=== PATIENT | male | born 1940 | race Caucasian/White ===

== ENCOUNTER 2022-11-05 09:29 | Emergency (ER) | payer MEDICARE, SELFPAY ==
--- NOTE | 2022-11-05 09:31 | ED.LOWEXIN ---
HPI - Extremity Injury (Lower) General Chief Complaint: Extremity Injury, Lower Stated Complaint: L TOE REDNESS/PAIN Time Seen by Provider: 11/05/22 09:31 Source: patient Mode of arrival: ambulatory Limitations: no limitations History of Present Illness HPI Narrative: Patient is an 81-year-old male who presents with left big toe redness and pain for week and a half. Patient states the pain is worsened since yesterday, 01/20. Patient has a history of gout but is not currently on any medication. Denies any injury to toe. Denies any fever, chills. Has been taking ibuprofen with little relief. Related Data Home Medications Medication Instructions Recorded Confirmed aspirin 81 mg tablet,delayed 81 mg PO DAILY 11/14/19 11/05/22 release metoprolol succinate 50 mg 50 mg PO DAILY 11/14/19 11/05/22 tablet,extended release 24 hr lactobacillus combination no.8 3 1 cell DAILY 11/05/22 11/05/22 billion cell capsule tumeric 100 mg-siva 150 mg-olive 1 cap PO DAILY 11/05/22 11/05/22 50 mg-oreg 150 mg-caprylate capsule Allergies Allergy/AdvReac Type Severity Reaction Status Date / Time propoxyphene Allergy Intermediate HEART Verified 11/05/22 09:40 PALPITATIONS Review of Systems Review of Systems: All systems reviewed & are unremarkable except as noted in HPI and below Constitutional: Constitutional: Denies body ache(s), Denies chills, Denies fatigue, Denies fever(s), Denies headache(s), Denies malaise and Denies weakness Eyes: Eyes: Denies blurry vision, Denies irritation and Denies loss of vision ENT: Denies otalgia, Denies headache(s), Denies nasal discharge, Denies sinus pain and Denies sore throat Cardiovascular: Cardiovascular: Denies chest pain, Denies irregular heart rhythm and Denies dyspnea Respiratory: Respiratory: Denies dyspnea Gastrointestinal: Gastrointestinal: Denies abdominal pain, Denies melena, Denies hematochezia, Denies diarrhea, Denies nausea and Denies vomiting Musculoskeletal: Musculoskeletal: Denies back pain, Denies myalgias, Reports arthralgias and Reports joint swelling Integumentary/Breasts: Skin/Breast: Denies pruritus and Denies rash Neurologic: Denies headache(s), Denies loss of vision and Denies weakness Psychiatric: Psychiatric: Reports no additional psychiatric complaints Endocrine: Endocrine: Denies fatigue PMFSH Past Medical History Medical History CAD (coronary artery disease) HLD (hyperlipidemia) Screening PSA (prostate specific antigen) Family History Family History Father Family history of cardiovascular disease, Onset Age: 68 Mother Acute myocardial infarction, Onset Age: 86 Social History Social History Smoking status: Former smoker Alcohol intake: current Comments At time of signature, agree with nursing past medical, surgical, social and family history. There is no relevant family history pertinent to the presenting complaint. Exam Const: General: cooperative, healthy appearing, comfortable, no acute distress and well nourished Nutritional Appearance: well nourished Orientation/consciousness: patient oriented x3 Limitations: no limitations HENMT: Head: normal to inspection, normocephalic and atraumatic Ears: hearing grossly normal bilaterally and external ears normal Face/Nose/Sinus: Normal external nose present, normal facial exam and face symmetric Face and sinus: normal facial exam and face symmetric Mouth: Yes lip normal Eyes: General: appearance normal, both eyes and all related structures Alignment and Position: alignment normal and position normal Periorbital: periorbital findings normal Eyelids: eyelids normal Pupils: Equal, round and reactive pupils present EOM: EOMs intact bilaterally Neck: Neck: normal visual inspection, full ROM and s
[2022-11-05 09:41] VITALS: BP 163/97; PULSE 77; RESP 16; TEMP 36.6; O2SAT 96
== END 2022-11-05 10:18 | disposition home or self-care (01) ==
PROVIDERS: Emergency Provider Nurse Practitioner Family; PCP Internal Medicine
DX: M10.9 Gout, unspecified (principal); I25.10 Atherosclerotic heart disease of native coronary artery without angina pectoris; E78.5 Hyperlipidemia, unspecified; Z87.891 Personal history of nicotine dependence; Z79.82 Long term (current) use of aspirin
CPT/HCPCS: 99213; G0463

== ENCOUNTER 2022-11-07 16:59 | Emergency (ER) | payer MEDICARE, SELFPAY ==
[2022-11-07 17:02] VITALS: BP 170/69; PULSE 69; RESP 20; TEMP 36.5; O2SAT 96
--- NOTE | 2022-11-07 17:23 | ED.EXTPRO ---
HPI - Extremity Problem General Chief complaint: Extremity Problem,Nontraumatic Stated complaint: gout left toe Time Seen by Provider: 11/07/22 17:05 History of Present Illness HPI Narrative: Patient is an 81-year-old male here for evaluation of erythema and pain and swelling to his left great toe x3 days. Patient presented to an urgent care upon symptom onset, was diagnosed with gout, was given prednisone and colchicine. Patient completed his course of colchicine today and after completion he states the redness and swelling came back. He has 5 more days of prednisone to take. He has not taken any Tylenol and ibuprofen. He denies any fevers, chills, nausea or vomiting. He states that he has been eating hamburger every day and drinking 2 beers nightly. He has also been walking more frequently and doing yard work. Related Data Home Medications Medication Instructions Recorded Confirmed aspirin 81 mg tablet,delayed 81 mg PO DAILY 11/14/19 11/05/22 release metoprolol succinate 50 mg 50 mg PO DAILY 11/14/19 11/05/22 tablet,extended release 24 hr lactobacillus combination no.8 3 1 cell DAILY 11/05/22 11/05/22 billion cell capsule tumeric 100 mg-siva 150 mg-olive 1 cap PO DAILY 11/05/22 11/05/22 50 mg-oreg 150 mg-caprylate capsule Allergies Allergy/AdvReac Type Severity Reaction Status Date / Time propoxyphene Allergy Intermediate HEART Verified 11/05/22 09:40 PALPITATIONS Review of Systems Review of Systems: Gen.: Denies fevers or chills Eyes: Denies eye pain or visual change ENT: Denies congestion Respiratory: Denies shortness of breath or cough CV: Denies chest pain or palpitations GI: Denies abdominal pain nausea, emesis or diarrhea denies burning, urgency, frequency or hematuria Musculoskeletal: Reports left toe pain Neuro: Denies numbness, tingling, weakness or focal weakness Skin: Denies rash Except as documented, all other systems reviewed and negative [facility] Past Medical History Medical History CAD (coronary artery disease) HLD (hyperlipidemia) Screening PSA (prostate specific antigen) Family History Family History Father Family history of cardiovascular disease, Onset Age: 68 Mother Acute myocardial infarction, Onset Age: 86 Social History Social History Smoking status: Former smoker Alcohol intake: current Exam Narrative: APPEARANCE: Well appearing, no pain in distress, well-nourished. Head: Normocephalic and atraumatic. EYES: PERRLA/EOMI, conjunctivae clear NOSE: No nasal drainage EARS: External ear normal in appearance THROAT: Oropharynx is clear. Mucous membranes are moist. NECK: Supple. No adenopathy, no masses. RESPIRATORY: Airway patent, respirations nonlabored. Clear to auscultation bilaterally, no rales, rhonchi, wheezing. CARDIOVASCULAR: Regular rate and rhythm without murmurs, rubs, or gallops. ABDOMINAL: Normoactive bowel sounds. Soft, nontender, nondistended. No rebound tenderness or guarding. MUSCULOSKELETAL: There is redness and swelling to the left great toe. Full range of motion without pain. Extremities are warm and well-perfused. Moves all extremities well. No edema. NEURO: Normal speech. No focal neurologic deficits. SKIN: Skin is warm and dry. No rashes. PSYCHIATRIC: Normal affect/mood. Course Vital Signs Vital signs: Vital Signs Temperature 97.7 F 11/07/22 17:02 Pulse Rate 69 11/07/22 17:02 Respiratory Rate 20 11/07/22 17:02 Blood Pressure 170/69 H 11/07/22 17:02 Pulse Oximetry 96 11/07/22 17:02 Oxygen Delivery Room Air 11/07/22 17:02 Temperature 97.7 F 11/07/22 17:02 Pulse Rate 69 11/07/22 17:02 Respiratory Rate 20 11/07/22 17:02 Blood Pressure 170/69 H 11/07/22 17:02 Pulse Oximetry 96 11/07/22 1
== END 2022-11-07 18:21 | disposition home or self-care (01) ==
LOC: ANHED 17:37
PROVIDERS: Emergency Provider Physician Assistant; PCP Internal Medicine
DX: M10.9 Gout, unspecified (principal); I25.10 Atherosclerotic heart disease of native coronary artery without angina pectoris; E78.5 Hyperlipidemia, unspecified; Z79.82 Long term (current) use of aspirin; Z87.891 Personal history of nicotine dependence
CPT/HCPCS: 99283

== ENCOUNTER 2023-12-12 08:40 | Emergency (ER) | payer MEDICARE, SELFPAY ==
[2023-12-12 08:53] VITALS: BP 158/78; PULSE 86; RESP 16; TEMP 36.5; O2SAT 98
--- NOTE | 2023-12-12 09:00 | ED.SKABFB ---
HPI - Skin/Abscess/Foreign Bdy General Chief complaint: Skin/Abscess/Foreign Body Stated complaint: INSECT BITE Time Seen by Provider: 12/12/23 09:00 Source: patient, family, RN notes reviewed and old records reviewed Mode of arrival: ambulatory Limitations: no limitations History of Present Illness HPI narrative: 83 year old male accompanied by presents to express care with complaints of noting either spider/insect bite to his right upper chest area which he noted last night. Patient has red area to right upper chest with center pin point black scabbed lesion with total area of redness 6cm X 4.5cm. Patient reports no acute pain to area on chest reports some tenderness of skin on palpation, no induration or fluctuant tissue noted of area. Patient reports no known fevers. MD complaint: insect bite/sting Onset (ago): day(s) (day 2 of symptoms) Location: chest (right chest) Severity: mild Quality: other (tenderness with palpation) Treatments prior to arrival: none Related Data Home Medications Medication Instructions Recorded Confirmed aspirin 81 mg tablet,delayed 81 mg PO DAILY 11/14/19 12/12/23 release metoprolol succinate 50 mg 50 mg PO DAILY 11/14/19 12/12/23 tablet,extended release 24 hr lactobacillus combination no.8 3 1 cell DAILY 11/05/22 12/12/23 billion cell capsule turmeric 100 mg-siva 150 1 cap PO DAILY 11/05/22 12/12/23 mg-olive 50 mg-oreg 150 mg-capryl capsule allopurinol 100 mg tablet 100 mg PO DAILY 12/12/23 12/12/23 Allergies Allergy/AdvReac Type Severity Reaction Status Date / Time propoxyphene Allergy Intermediate HEART Verified 12/12/23 08:49 PALPITATIONS Review of Systems Review of Systems: CONSTITUTIONAL: Denies fever, chills, or sweats. CARDIOVASCULAR: Denies chest pain, palpitations, or edema. RESPIRATORY: Denies cough or dyspnea. GASTROINTESTINAL: Denies abdominal pain, nausea, vomiting SKIN: Reports redness and minimal swelled area to right upper chest with center pin point scab with surrounding erythema, concern of insect bite MUSCULOSKELETAL: Denies myalgia. NEUROLOGIC: Denies headache, numbness All systems reviewed & are unremarkable except as noted in HPI and below PMFSH Past Medical History Medical History CAD (coronary artery disease) Gout HLD (hyperlipidemia) Hypertension Screening PSA (prostate specific antigen) Surgical History Surgical History H/O cataract removal with insertion of prosthetic lens bilateral History of appendectomy History of open heart surgery 5 vessel bypass History of total left knee replacement S/p bilateral carpal tunnel release S/P right rotator cuff repair S/P TURP Family History Family History Father Family history of cardiovascular disease, Onset Age: 68 Mother Acute myocardial infarction, Onset Age: 86 Social History Social History Smoking status: Former smoker Alcohol intake: current Substance use type: does not use Living arrangements: with family Gender identity (if verbalized by the patient): Male Comments At time of signature, agree with nursing past medical, surgical, social and family history. There is no relevant family history pertinent to the presenting complaint Exam Narrative: GENERAL: Well-appearing, well-nourished, and in no acute distress. HEAD: Normocephalic, atraumatic. EYES: PERRLA and EOMI. ENT: Nares clear, no rhinorrhea or epistaxis. Mucous membranes moist. NECK: Supple.no lymphadenopathy CHEST: Clear to auscultation. No respiratory distress.SAO2 98% on vasile air HEART: Regular rate and rhythm. No murmur heard. Normal peripheral pulses. ABDOMEN: Soft, nontender, nondistended, normal active bowel sounds. EXTREMITIES: Normal range of
== END 2023-12-12 09:27 | disposition home or self-care (01) ==
PROVIDERS: Emergency Provider Registered Nurse; PCP Internal Medicine
DX: S20.361A Insect bite (nonvenomous) of right front wall of thorax, initial encounter (principal); L03.313 Cellulitis of chest wall; W57.XXXA Bitten or stung by nonvenomous insect and other nonvenomous arthropods, initial encounter; Z87.891 Personal history of nicotine dependence; I25.10 Atherosclerotic heart disease of native coronary artery without angina pectoris; M10.9 Gout, unspecified; E78.5 Hyperlipidemia, unspecified; I10 Essential (primary) hypertension; Z96.1 Presence of intraocular lens; Z98.42 Cataract extraction status, left eye; Z98.41 Cataract extraction status, right eye; Z95.1 Presence of aortocoronary bypass graft; Z79.82 Long term (current) use of aspirin
CPT/HCPCS: 99213; G0463

== ENCOUNTER 2024-01-29 09:22 | Emergency (ER) | payer MEDICARE, SELFPAY ==
[2024-01-29] VITALS (10 sets, daily range): BP systolic 113–179; BP diastolic 63–90; PULSE 72–99; RESP 16–26; TEMP 36.6; O2SAT 91–97
--- NOTE | ~2024-01-29 | CT_ITS ---
EXAMINATION: CTA chest PE protocol DATE: 01/29/2024 11:04 INDICATION: Chest pain TECHNIQUE: Computed tomography (CT) pulmonary angiogram of the chest was performed with 100 mL Omnipa que-350 intravenous contrast. Additional 3D reconstructions utilizing coronal maximum intensity proje ction (MIP) were performed. Automated exposure control and iterative reconstruction technique were em ployed. The dose-length product was 822.49 mGy-cm. COMPARISON: None FINDINGS: No pulmonary embolism. There is diffuse bilateral groundglass opacities throughout both lungs which a ppears to 2 expiratory phase of imaging with concave contour to the posterior wall of the trachea as well as flattening of the right mainstem bronchus and bronchus intermedius which is also consistent w ith tracheobronchomalaciacould not exclude pulmonary edema although there is no smooth septal line th ickening to more specifically suggest this. There are couple small pneumatoceles of the right upper a nd right lower lobes. There are small bilateral pleural effusions along the posterior medial right lo wer lobe and loculated along the lateral side of the left mid to lower lung. Cardiomegaly. Atheroscle rotic coronary artery calcifications and change of median sternotomy and coronary artery bypass graft ing. Aortic valve calcification. Thoracic aorta is normal in caliber with no dissection. Mild right h ilar and mediastinal lymphadenopathy with largest lymph node in the right paratracheal region measuri ng 1.3 cm in maximal short axis diameter. A few cysts in the left hepatic lobe measuring up to 2.8 cm . There are also bilateral renal cysts the largest on the right measuring 2.5 cm. Visualized upper ab domen is otherwise unremarkable. Severe spondylosis at several levels of the cervicothoracic and thor acolumbar junctions. Chronic mild compression fractures at T7-T9. More recent physical chronic appear ing T12 compression fracture with 30% anterior vertebral body height loss. IMPRESSION: 1. No pulmonary embolism. 2. Groundglass opacities throughout both lungs and favor atelectasis due to expiratory phase of imagi ng over pneumonia. 3. Tracheobronchial malacia. 4. And small loculated left and very small right pleural effusions. 5. Cardiomegaly. 6. Mild likely reactive right hilar and mediastinal lymphadenopathy. Reviewed, dictated and finalized at location A. IMPRESSION: 1. No pulmonary embolism. 2. Groundglass opacities throughout both lungs and favor atelectasis due to exp iratory phase of imaging over pneumonia. 3. Tracheobronchial malacia. 4. And small loculated left and very small right pleural effusions. 5. Cardiomegaly. 6. Mild likely reactive right hilar and mediastinal lymphadenopathy.
--- NOTE | ~2024-01-29 | XR_ITS ---
EXAMINATION: XR chest 2V DATE: 01/29/2024 10:06 INDICATION: Chest pain and palpitations. TECHNIQUE: frontal and lateral views of the chest were obtained. COMPARISON: Chest radiograph dated 09/22/18 FINDINGS: Opacities in the left lower lung zone with blunting of the left costophrenic angle consistent with sm all left pleural effusion and associated atelectasis versus pneumonia. Right lung remains clear. No p ulmonary edema, pneumothorax or right-sided pleural effusion. Heart size is normal. Median sternotomy wires and mediastinal surgical clips are seen, likely from prior coronary artery bypass grafting. IMPRESSION: 1. Small left pleural effusion with associated basilar atelectasis and/or pneumonia. Reviewed, dictated and finalized at location A. IMPRESSION: 1. Small left pleural effusion with associated basilar atelectasis and/or pneum onia.
--- NOTE | 2024-01-29 09:23 | ECG_ITS ---
Test Date: 2024-01-29 09:28:40 Measurements Intervals [place] Rate: 93 P: 0 [place]: 0 QRS: 20 QRSD: 163 T: 155 QT: 356 QTc: 444 Interpretive Statements ATRIAL FIBRILLATION WITH ABERRANT CONDUCTION OR VENTRICULAR PREMATURE COMPLEXES INTRAVENTRICULAR CONDUCTION DELAY [130+ ms QRS DURATION] INFERIOR MYOCARDIAL INFARCTION , PROBABLY OLD [40+ ms Q WAVE AND/OR ST/T ABNORMALITY IN II/aVF] abnormal ecg Electronically Signed On 01-30-2024 10:48:01 CDT by Valdez Beltran M.D.
[2024-01-29 09:39] LABS: Basophils Absolute Auto 0.1 K/mm3 (0.0-0.1); Basophils Percent Auto 0.5 % (0.2-1.2); Eosinophils Absolute Auto 0.1 K/mm3 (0-0.3); Hematocrit 41.3 % (42.0-52.0); Hemoglobin 13.6 g/dL (14.0-18.0); Immature Granulocyte Absolute 0.05 K/mm3 (0.00-0.031); Immature Granulocyte Percent A 0.4 % (0-0.5); Lymphocytes Absolute Auto 1.11 K/mm3 (0.9-3.2); Lymphocytes Percent Auto 8.1 % (18.3-44.2); Mean Corpuscular HGB Conc 32.9 g/dl (32-36); Mean Corpuscular Hemoglobin 30.8 pg (26-34); Mean Corpuscular Volume 93.7 fl (80-100); Monocytes Absolute Auto 0.9 K/mm3 (0.1-0.6); Monocytes Percent Auto 6.9 % (2.6-8.5); Neutrophils Absolute Auto 11.3 K/mm3 (1.3-6.7); Neutrophils Percent Auto 83.1 % (45.5-73.1); Platelet Count Result 224 k/mm3 (150-375); Red Blood Count 4.41 M/mm3 (4.6-6.20); Red Cell Distribution Width 13.8 % (11.5-14.5); White Blood Count 13.6 K/mm3 (4.5-10.0)
--- NOTE | 2024-01-29 09:41 | ED.CHESTPAIN ---
HPI - Chest Pain General Chief Complaint: Chest Pain Stated Complaint: chest palp since 0430 Time Seen by Provider: 01/29/24 09:24 History of Present Illness HPI narrative: 83-year-old male present to the emergency department for evaluation of some chest tightness. Patient states that he woke up this morning he did have some chest tightness. Patient states this did not feel similar to his previous HI that occurred in 2018. Patient does have history of open heart surgery. Patient also states approximate 2 weeks ago he was diagnosed with AFib. Patient is not in RVR. Upon arrival emergency department patient states he is no longer having chest pain but does have some sharp pain when he takes a deep breath. Patient denies any recent cough colds or fevers. Patient denies any falls or injuries. Related Data Home Medications Medication Instructions Recorded Confirmed aspirin 81 mg tablet,delayed 81 mg PO DAILY 11/14/19 12/12/23 release metoprolol succinate 50 mg 50 mg PO DAILY 11/14/19 12/12/23 tablet,extended release 24 hr lactobacillus combination no.8 3 1 cell DAILY 11/05/22 12/12/23 billion cell capsule turmeric 100 mg-siva 150 1 cap PO DAILY 11/05/22 12/12/23 mg-olive 50 mg-oreg 150 mg-capryl capsule allopurinol 100 mg tablet 100 mg PO DAILY 12/12/23 12/12/23 Allergies Allergy/AdvReac Type Severity Reaction Status Date / Time propoxyphene Allergy Intermediate HEART Verified 01/29/24 09:34 PALPITATIONS Review of Systems Review of Systems: All systems reviewed & are unremarkable except as noted in HPI and below PMFSH Past Medical History Medical History CAD (coronary artery disease) Gout HLD (hyperlipidemia) Hypertension Screening PSA (prostate specific antigen) Surgical History Surgical History H/O cataract removal with insertion of prosthetic lens bilateral History of appendectomy History of open heart surgery 5 vessel bypass History of total left knee replacement S/p bilateral carpal tunnel release S/P right rotator cuff repair S/P TURP Family History Family History Father Family history of cardiovascular disease, Onset Age: 68 Mother Acute myocardial infarction, Onset Age: 86 Social History Social History Smoking status: Former smoker Alcohol intake: current Substance use type: does not use Living arrangements: with family Gender identity (if verbalized by the patient): Male Exam Narrative: APPEARANCE: Well appearing, no pain, no distress, well-nourished. HEAD: normocephalic, atraumatic. EYES: PERRLA/EOMI, conjunctivae clear. NOSE: Normal no drainage EARS:TMS clear with good light reflex. THROAT: Pharynx clear, no exudate. NECK: Supple. No adenopathy, no masses. RESPIRATORY: Airway patent, respirations nonlabored. Clear to auscultation bilaterally, no rales, rhonchi, wheezing. CARDIOVASCULAR: Regular rate and rhythm without murmurs rubs or gallops. ABDOMINAL: Soft, nontender, nondistended, normal bowel sounds MUSCULOSKELETAL: Moves all extremities. Strength/ROM intact, No edema, No calf tenderness. NEURO: Alert. Cranial nerves II through XII intact. Grossly intact SKIN: Warm, dry. Normal Color Course Course Emergency Course: Patient preferred to be discharged to home. Vital Signs Vital signs: Vital Signs Temperature 97.8 F 01/29/24 09:25 Pulse Rate 94 01/29/24 09:25 Respiratory Rate 25 H 01/29/24 09:25 Blood Pressure 179/90 H 01/29/24 09:25 Pulse Oximetry 97 01/29/24 09:25 Oxygen Delivery Room Air 01/29/24 09:25 Temperature 97.8 F 01/29/24 09:25 Pulse Rate 82 01/29/24 13:50 Respiratory Rate 21 H 01/29/24 13:50 Blood Pressure 140/87 01/29/24 13:32 Pulse Oximetry
[2024-01-29] MEDS: ASPIRIN 81 MG CHEWABLE TABLET 243 MG PO (09:43)
[2024-01-29] MEDS: NITROGLYCERIN SL 0.4 MG TABLET SUBLINGUAL (09:43)
[2024-01-29 09:57] LABS: INR 1.3; Prothrombin Time 16.8 Seconds (11.1-14.7)
[2024-01-29 09:58] LABS: Partial Thromboplastin Time 38.5 Seconds (22.3-36.8)
[2024-01-29 09:59] LABS: Alanine Aminotransferase 11 U/L (6-50); Albumin Level 4.1 g/dL (3.5-5.1); Alkaline Phosphatase 80 U/L (38-126); Anion Gap 8 mmol/L (4-12); Aspartate Amino Transferase 18 U/L (17-59); Bilirubin,Total 1.4 mg/dL (0.2-1.3); Blood Urea Nitrogen 16 mg/dL (9-20); Carbon Dioxide 24 mmol/L (22-30); Chloride 104 mmol/L (98-107); Estimated CRCL calculation 57 ml/min; Estimated Glomerular Filt Rate > 60; Glucose 160 mg/dL (65-110); Lipase 62 U/L (23-300); Potassium 4.1 mmol/L (3.4-5.0); Sodium 136 mmol/L (137-145)
[2024-01-29 10:10] LABS: Troponin I 0.017 ng/mL (0.000-0.034)
[2024-01-29 10:17] LABS: D Dimer 1.31 ug/mL (<0.48)
--- NOTE | 2024-01-29 12:55 | ECG_ITS ---
Test Date: 2024-01-29 13:00:48 Measurements Intervals [place] Rate: 71 P: 0 [place]: 0 QRS: -10 QRSD: 153 T: 147 QT: 401 QTc: 437 Interpretive Statements ATRIAL FIBRILLATION INTRAVENTRICULAR CONDUCTION DELAY [130+ ms QRS DURATION] INFERIOR MYOCARDIAL INFARCTION , PROBABLY OLD [40+ ms Q WAVE AND/OR ST/T ABNORMALITY IN II/aVF] ABNORMAL ECG Electronically Signed On 01-30-2024 10:52:41 CDT by Valdez Beltran M.D.
[2024-01-29 13:30] LABS: Troponin I 0.015 ng/mL (0.000-0.034)
== END 2024-01-29 14:03 | disposition home or self-care (01) ==
PROVIDERS: Emergency Provider Emergency Medicine; PCP Internal Medicine
DX: R07.89 Other chest pain (principal); I25.2 Old myocardial infarction; I48.91 Unspecified atrial fibrillation; I25.10 Atherosclerotic heart disease of native coronary artery without angina pectoris; I10 Essential (primary) hypertension; E78.5 Hyperlipidemia, unspecified; M10.9 Gout, unspecified; Z96.1 Presence of intraocular lens; Z98.42 Cataract extraction status, left eye; Z98.41 Cataract extraction status, right eye; Z95.1 Presence of aortocoronary bypass graft; Z96.652 Presence of left artificial knee joint; Z87.891 Personal history of nicotine dependence; Z79.01 Long term (current) use of anticoagulants; Z79.82 Long term (current) use of aspirin; Z79.899 Other long term (current) drug therapy; I51.7 Cardiomegaly; I45.9 Conduction disorder, unspecified
CPT/HCPCS: 36415; 71046; 71275; 80053; 83690; 84484; 85025; 85380; 85610; 85730; 93005; 99284; A9270; Q9967

== ENCOUNTER 2024-10-23 15:29 | Emergency (ER) | payer MEDICARE, SELFPAY ==
--- NOTE | ~2024-10-23 | XR_ITS ---
EXAMINATION: XR chest 2V Exam Date/Time: 10/23/2024 16:08 CDT HISTORY: cough, chills, sweats for 2 days Comparison: 01/29/2024; [facility]PA 01/29/2024. RESULT: Lines, tubes, and devices: Multiple fractured sternotomy wires remain in stable position. Mediastina l surgical clips. Lungs and pleura: Segmental left basilar and subsegmental right basilar airspace disease. Mild diffu se reticular opacities. Mild left costophrenic angle blunting. Cardiomediastinal silhouette: Stable. Other: No acute osseous or upper abdominal finding. IMPRESSION: Segmental left basilar and subsegmental right basilar airspace disease, may represent alveolar edema, atelectasis, or consolidation. Possible small loculated left pleural effusion. Senescent change vers us mild interstitial edema. Reviewed, dictated and finalized at location K. IMPRESSION: Segmental left basilar and subsegmental right basilar airspace disease, may rep resent alveolar edema, atelectasis, or consolidation. Possible small loculated left pleural effusion. Senescent change versus mild interstitial edema.
[2024-10-23 15:41] VITALS: BP 118/73; PULSE 72; RESP 18; TEMP 36.6; O2SAT 97
[2024-10-23 16:14] LABS: EDCOVIDSCREEN Negative (Negative); EDINFLUASCREEN Negative (Negative); EDINFLUBSCREEN Negative (Negative)
--- NOTE | 2024-10-23 16:27 | ED_ITS ---
HPI - URI/Sore Throat General Chief Complaint: Upper Respiratory Infection Stated Complaint: Cough Time Seen by Provider: 10/23/24 16:15 Source: patient and RN notes reviewed Mode of arrival: ambulatory Limitations: no limitations History of Present Illness HPI Narrative: 83-year-old male presents Express Care complaining of cough, chills, fevers, malaise, sweats since yesterday. Patient reports having a productive cough and having yellow and green sputum production. Patient has significant heart history including CABG. Patient denies any lung disease and quit smoking approximately 40 years ago. Patient denies any chest pain or shortness of breath, sore throat, rhinorrhea, ear pain, nausea, vomiting, diarrhea. Patient not get his pneumonia shot this year. Related Data Home Medications ?Medication ?Instructions ?Recorded ?Confirmed ?Last Taken ?Type aspirin 81 mg tablet,delayed 81 mg PO DAILY 11/14/19 12/12/23 Unknown History release metoprolol succinate 50 mg 50 mg PO DAILY 11/14/19 12/12/23 Unknown History tablet,extended release 24 hr lactobacillus combination no.8 3 1 cell DAILY 11/05/22 12/12/23 Unknown History billion cell capsule turmeric 100 mg-siva 150 1 cap PO DAILY 11/05/22 12/12/23 Unknown History mg-olive 50 mg-oreg 150 mg-capryl capsule allopurinol 100 mg tablet 100 mg PO DAILY 12/12/23 12/12/23 Unknown History apixaban 5 mg tablet (Eliquis) mg 10/23/24 Unknown History hydroxyzine HCl 50 mg tablet mg 10/23/24 Unknown History metoprolol succinate 25 mg mg PO 10/23/24 Unknown History tablet,extended release 24 hr Allergies Allergy/AdvReac Type Severity Reaction Status Date / Time propoxyphene Allergy Intermediate HEART Verified 10/23/24 15:37 PALPITATIONS Review of Systems Review of Systems: CONSTITUTIONAL: Positive for fever, chills, malaise, or sweats. Negative for body aches EYES: Denies visual changes, redness, or discharge. ENT: Denies rhinorrhea, sore throat, or otalgia. Positive for congestion. CARDIOVASCULAR: Denies chest pain, palpitations, or edema. RESPIRATORY: Positive for productive cough. Negative for dyspnea. GASTROINTESTINAL: Denies abdominal pain, nausea, vomiting, or diarrhea. GENITOURINARY: Denies dysuria or hematuria. SKIN: Denies rash or itching. MUSCULOSKELETAL: Denies back pain, joint pain, or myalgia. NEUROLOGIC: Denies headache, numbness, or weakness. PSYCHIATRIC: Denies anxiety or depression. All other systems reviewed are negative, except as documented in HPI. FOR[facility], LATER [facility] Past Medical History Medical History Hypertension Gout Screening PSA (prostate specific antigen) HLD (hyperlipidemia) CAD (coronary artery disease) Surgical History Surgical History H/O cataract removal with insertion of prosthetic lens bilateral S/p bilateral carpal tunnel release S/P right rotator cuff repair History of appendectomy S/P TURP History of total left knee replacement History of open heart surgery 5 vessel bypass Family History Family History Father Family history of cardiovascular disease, Onset Age: 68 Mother Acute myocardial infarction, Onset Age: 86 Social History Social History Smoking status: Former smoker Alcohol intake: current Substance use type: does not use Living arrangements: with family Gender identity (if verbalized by the patient): Male Comments At the time of my signature, I reviewed and agree with the nursing past medical, surgical, social, and family history. There is no relevant family history pertinent to the patient complaint. Exam Narrative: GENERAL: This is a well-nourished, well-developed adult, in no apparent distress. They are non ill-appearing, nontoxic appearing. Hearing aids are present. HEAD: normocephalic, atraumatic. EYES: Sclera clear/white. Conjunctiva normal. Vision is grossly intact. Extraocular movements intact EARS: External ears normal, auditory canals clear and without drainage, TMs normal without perforation. Hearing grossly intact. NOSE: External nose normal with no obvious nasal discharge, nasal turbinates erythematous bilaterally, no rhinorrhea. THROAT: Mucous membranes moist, posterior pharynx clear, without erythema or sw elling. Uvula midline. Postnasal drip present. NECK: Neck supple, non-tender without lymphadenopathy, masses or thyromegaly. CARDIOVASCULAR: Regular rate and rhythm without murmurs, gallops, or rubs. RESPIRATORY: Clear to auscultation. Breath sounds equal bilaterally. No wheezes, rales, or rhonchi. Respiratory rate normal, respiratory effort nonlabored, no respiratory distress, no retractions SKIN: warm, Dry, intact with no suspicious lesions or rash, good texture and turgor. NEURO: awake, alert, and oriented to person, place and time. There were no obvious focal neurologic abnormalities. EXTREMITIES: No joint tenderness, effusion, or edema noted. BACK: Nontender without deformity. No CVA tenderness. Course Course Emergency Course: Portions of this record may have been created with voice recognition software Level of Care: Express Care Visit Vital Signs Vital signs: Vital Signs Oxygen Delivery Room Air 10/23/24 15:39 Temperature 97.9 F 10/23/24 15:41 Pulse Rate 72 10/23/24 15:41 Respiratory Rate 18 10/23/24 15:41 Blood Pressure 118/73 10/23/24 15:41 Pulse Oximetry 97 10/23/24 15:41 Oxygen Delivery Room Air 10/23/24 15:39 Reviewed MDM - URI/Sore Throat MDM Narrative Medical decision making narrative: Rapid COVID and flu negative. Chest x-ray revealed evidence of pneumonia and a possible small pleural effusion. No adventitious lung sounds present on exam. Given patient's symptoms is likely the patient has a bacterial pneumonia. Will treat empirically with Augmentin and azithromycin given his comorbidities. Patient is not short of breath at rest or with exertion. Patient vital signs are stable without evidence of hypoxia. Patient is appropriate for outpatient management and follow-up. Discussed physical exam findings. Anticipatory guidance given. Strict ER precautions discussed. Differential Diagnosis Differential diagnosis: Likely upper respiratory infection, bronchitis and other (Pneumonia) Lab Data Attestation: I reviewed the patient's lab results. Labs: Lab Results 10/23/24 Range/Units 16:12 POC Influenza A Ag Negative (Negative) POC Influenza B Ag Negative (Negative) POC SARS CoV-2 Ag Negative (Negative) Imaging Data Radiologist's impression: ITS Impressions Chest X-Ray 10/23/24 16:25 IMPRESSION: Segmental left basilar and subsegmental right basilar airspace disease, may represent alveolar edema, atelectasis, or consolidation. Possible small loculated left pleural effusion. Senescent change versus mild interstitial edema. Critical Care Time Critical Care Time Critical Care Time: No Discharge Plan Discharge Clinical Impression: Pneumonia Qualifiers: Pneumonia type: due to unspecified organism Laterality: bilateral Lung location: unspecified part of lung Qualified Code(s): J18.9 - Pneumonia, unspecified organism Patient Disposition: Home Condition: Stable Instructions: Antibiotic Form, Community Acquired Pneumonia (ED) Additional Instructions: Take the antibiotics as directed. Please finish the antibiotics completely if you start feeling better. Do not use any cough suppressant her any medication has DM listed on it. You may take plain Mucinex to help thin your sputum. Please follow-up with primary care provider in 1-3 days. If your symptoms are not getting better on antibiotics, you develop difficulty breathing, chest pain, shortness of breath, uncontrollable fevers, confusion, nausea or vomiting, or any other concerns please go to the ER immediately. Patient Language: Tajik Prescriptions: New amoxicillin-pot clavulanate 875-125 mg tablet 1 tablet PO Q12H 7 Days Qty: 14 0RF azithromycin 250 mg tablet See Rx Instructions .ROUTE .COMPLEX Qty: 6 0RF Rx Instructions: For 250 mg dose pack: take 500 mg today (day 1), then 250 mg for 4 days (days 2-5) No Action allopurinol 100 mg tablet 100 mg PO DAILY hydroxyzine HCl 50 mg tablet metoprolol succinate 25 mg tablet extended release 24 hr PO Eliquis 5 mg tablet Adult Probiotic 3 billion cell Capsule 1 cell DAILY [id number]-capry 100 mg-150 mg- 50 mg-150 mg Capsule 1 cap PO DAILY aspirin 81 mg tablet,delayed release (DR/EC) 81 mg PO DAILY metoprolol succinate 50 mg tablet extended release 24 hr 50 mg PO DAILY Follow-up/Referrals: Sean,MD Yury [Primary Care Provider] - Time of Disposition: 16:43
== END 2024-10-23 16:49 | disposition home or self-care (01) ==
PROVIDERS: PCP Internal Medicine
DX: J18.9 Pneumonia, unspecified organism (principal); Z20.822 Contact with and (suspected) exposure to COVID-19; Z87.891 Personal history of nicotine dependence; I25.10 Atherosclerotic heart disease of native coronary artery without angina pectoris; E78.5 Hyperlipidemia, unspecified; I10 Essential (primary) hypertension; M10.9 Gout, unspecified; Z96.1 Presence of intraocular lens; Z98.42 Cataract extraction status, left eye; Z98.41 Cataract extraction status, right eye; Z95.1 Presence of aortocoronary bypass graft; Z79.01 Long term (current) use of anticoagulants; Z79.82 Long term (current) use of aspirin
CPT/HCPCS: 71046; 87426; 87804; 99213; G0463